=== PATIENT | male | born 1995 | race African-American/Black ===

== ENCOUNTER 2021-05-26 00:43 | Emergency (ER) | payer OTHER ==
[2021-05-26] MEDS ORDERED: Proparacaine 0.5% Opth 15 ML BOT ONE (00:54)
[2021-05-26] MEDS ORDERED: Fluorescein Opthalmic Strip ONE (00:57)
[2021-05-26] MEDS ORDERED: Morphine 4 MG/ML VIAL ONE (01:22)
[2021-05-26] MEDS ORDERED: Boostrix 0.5 ML (Tdap) VIAL ONE (01:22)
[2021-05-26] MEDS ORDERED: Ondansetron PF 4 MG/2 ML Vial ONE ×2 (01:22→01:46)
[2021-05-26] MEDS ORDERED: HYDROcodone/Acetaminophen 5/325 mg Tablet ONE (01:22)
[2021-05-26 02:38] LABS: SARS-CoV-2 NAA Rapid Test Not Detected (NotDetected)
== END 2021-05-26 02:16 ==
LOC: ERS 00:43
DX: T23.151A Burn of first degree of right palm, initial encounter (principal); T23.152A Burn of first degree of left palm, initial encounter; T26.42XA Burn of left eye and adnexa, part unspecified, initial encounter; T26.41XA Burn of right eye and adnexa, part unspecified, initial encounter; S00.81XA Abrasion of other part of head, initial encounter; Z20.822 Contact with and (suspected) exposure to COVID-19; W39.XXXA Discharge of firework, initial encounter
CPT/HCPCS: 90471; 90715; 96374; 96375; J2270; J2405; U0002; U0005